=== PATIENT | male | born 1965 | race Two or more races ===

== ENCOUNTER → 2019-09-07 06:00 | Outpatient (CLI) | payer OTHER ==
[~2019-09-07] VITALS: Ht 175.3 cm; Wt 86.2 kg
[~2019-09-07 06:00] MED LIST: METFORMIN HCL500 M3 PO; ZESTRIL2.5 MG PO
== END | disposition home or self-care (01) ==
LOC: LAB 06:00 → EDSTATUS 08:30 → ADM 08:30 → O/R 09-13 08:30 → EDSTATUS 09-13 08:30 → O/R 09-13 10:30
DX: K43.2 Incisional hernia without obstruction or gangrene (principal); K42.9 Umbilical hernia without obstruction or gangrene; I10 Essential (primary) hypertension; R10.9 Unspecified abdominal pain; Z01.818 Encounter for other preprocedural examination